=== PATIENT | female | born 1985 | race American Indian/Alaskan Native ===

== ENCOUNTER 2018-11-17 08:15 | Emergency (ER) | payer MEDICAID ==
[2018-11-17 08:20] VITALS: BP 105/76
--- NOTE | 2018-11-17 09:18 | Emergency Department Report ---
Eye Injury/Foreign Body - HPI Duration: 1 Day Eye Location: Bilateral Severity: Moderate Tetanus Status: Up to Date Eye Symptoms: Eye Pain: Yes, Blurred Vision: Yes, Eye Redness: No, Grinding/Hammering Metal: No, Contact Lens Use: No, Recalls Injury: No, Photophobia: Yes Other History: eye pain, bilateral, blurred vision. after sun exposure yesterday. no injury, no contacts ED Review of Systems ROS: Stated complaint: PAIN IN BOTH EYES Other details as noted in HPI Comment: All other systems reviewed and negative Eyes: as per HPI ED Past Medical Hx - Past Medical History Previous Medical History?: No - Surgical History Additional Surgical History: open heart surgery for cardiac mass 2016, tubal ligation - Social History Smoking Status: Never Smoker - Medications Home Medications: Home Medications Medication Instructions Recorded Confirmed Last Taken Type ALBUTEROL Inhaler (OR & NICU) 2 puff IH QID PRN #1 inhalation 06/06/18 Unknown Rx [ProAir HFA Inhaler] Ondansetron [Zofran Odt] 4 mg PO Q8HR PRN #14 tab.rapdis 06/06/18 Unknown Rx Prednisone [predniSONE 10 mg 10 mg PO .TAPER #1 tab.ds.pk 06/06/18 Unknown Rx (6-Day Pack, 21 Tabs)] Erythromycin [Erythromycin Ophth 1 applicatio OU Q6HR #1 tube 11/17/18 Unknown Rx Oint] Ketorolac Tromethamine [Acular 1 drop OU 4XD #5 ml 11/17/18 Unknown Rx 0.5% Opth Soln] traMADol [Ultram 50 MG tab] 50 mg PO Q6HR PRN #12 tablet 11/17/18 Unknown Rx Eye Injury Exam - Exam General: Vital signs noted. No distress. Alert and acting appropriately. - Visual Acuity Left Vision Acuity Degree: 20/30 Eye Exam: Both EOMI, Both Photophobia, Neither Injection, Neither Chemosis, Neither Abnormal Pupil, Neither Eye Foreign Body, Neither Lid Foreign Body, Neither Purulent Discharge Right Vision Acuity Degree: 20/25 Eye Exam: Both EOMI, Both Photophobia, Neither Injection, Neither Chemosis, Neither Abnormal Pupil, Neither Eye Foreign Body, Neither Lid Foreign Body, Neither Purulent Discharge Bilateral Vision Acuity Degree: 20/25 Exam: no hyphema. no large ulceration ED Course Vital Signs 11/17/18 08:17 Temperature 98.2 F Pulse Rate 63 Respiratory 18 Rate Blood Pressure 105/76 O2 Sat by Pulse 100 Oximetry ED Medical Decision Making - Medical Decision Making eye pain, normal pressures (13, 14) likely UV keratitis, no definite ulcerations noted will treat supportively, close ophthalmology follow up - Differential Diagnosis keratitis, conjunctivitis, glaucoma Critical care attestation.: If time is entered above; I have spent that time in minutes in the direct care of this critically ill patient, excluding procedure time. ED Disposition Clinical Impression: Ultraviolet keratitis of both eyes Disposition: DC- TO HOME OR SELFCARE Is pt being admited?: No Condition: Good Instructions: Keratitis (ED) Prescriptions: Ketorolac Tromethamine [Acular 0.5% Opth Soln] 1 drop OU 4XD #5 ml Erythromycin [Erythromycin Ophth Oint] 1 applicatio OU Q6HR #1 tube traMADol [Ultram 50 MG tab] 50 mg PO Q6HR PRN #12 tablet PRN Reason: Pain Referrals: MARYANN MICHELLE MD [Staff Physician] - 3-5 Days Time of Disposition: 09:47
[2018-11-17] MEDS ORDERED: TETRACAINE 0.5% OU ONE (09:27)
== END 2018-11-17 10:02 | disposition home or self-care (01) ==
LOC: ED 08:15
DX: H16.8 Other keratitis (principal); Z79.899 Other long term (current) drug therapy
CPT/HCPCS: 99283

== ENCOUNTER 2018-12-20 05:48 | Emergency (ER) | payer MEDICAID ==
[2018-12-20 05:58] VITALS: BP 126/83
--- NOTE | 2018-12-20 08:15 | Emergency Department Report ---
Blank Doc - Documentation Documentation: A physician and/or other qualified medical personnel has recommended that the patient receive further examination and/or treatment beyond their Medical Screening Exam. The risks and benefits were explained. The patient was informed of their right to emergency care. Patient left before final disposition of their medical condition. This note has been generated by me, Dr. Rodolfo Goodman III, MD, the Recreation Activities Coordinator for the emergency department. I have not seen this patient personally. Patient was next to be seen by my mid-level however her became angry that they had waited 2 hours for a nonemergent condition had not been seen yet. Our charge nurse tried to explain that there were several other patients who were near and required attention before they proceed. The couple continued to be angry and did not understand that emergency medicine there is a triage process that requires us to see sicker patients first. Patient's left the emergency department.
== END 2018-12-20 08:12 | disposition left against medical advice (07) ==
LOC: ED 05:48
DX: H57.89 Other specified disorders of eye and adnexa (principal); Z53.21 Procedure and treatment not carried out due to patient leaving prior to being seen by health care provider